=== PATIENT | male | born 1975 | race Caucasian/White ===

== ENCOUNTER 2017-02-08 09:28 | Emergency (ER) | payer OTHER ==
[2017-02-08 09:39] VITALS: BP 121/75
[2017-02-08] MEDS ORDERED: Ketorolac INJ* 60 MG/2 ML VIAL IM ONE (10:11)
--- NOTE | 2017-02-08 10:47 | RAD ---
HISTORY: Back pain COMPARISONS: None VIEWS: 5 , Frontal, lateral, coned-down lateral sacral, and bilateral oblique views of the lumbar spine. FINDINGS: ALIGNMENT: The alignment is normal. VERTEBRAL BODIES: The vertebral body heights are normal. The interpedicular distances are normal. There is mild anterolateral marginal osteophyte formation. Incidentally noted is a dysraphic defect of L5. There are probable bilateral pars defects. JOINTS: There is mild facet osteoarthritis. INTERVERTEBRAL DISCS: There is mild diffuse loss of intervertebral disc height. SOFT TISSUE: Unremarkable. OTHER: The pelvis is unremarkable. The lung bases are clear. IMPRESSION: MILD DEGENERATIVE DISC DISEASE AND OSTEOARTHRITIS. 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
--- NOTE | 2017-02-08 12:04 | UC ---
Back Pain HPI - HPI Summary HPI Summary: TWO WEEKS AGO, PICKED UP GARDEN POTS IN THE RAIN, HAD TWISTING INJURY, INJURED LOW BACK. SINCE THAT TIME HAS HAD CONTINUED PAIN. TINGLING RADIATING DOWN LEGS. NO LOSS OF CONTROL OF BLADDER OR BOWELS. NO BRUISING. NO SWELLING. NO FEVER. - History of Current Complaint Chief Complaint: UCBackPain Stated Complaint: LOWER BACK PAIN Time Seen by Provider: 02/08/17 09:55 Hx Obtained From: Patient, Family/Manufacturing Engineering Director Onset/Duration: Sudden Onset, Lasting Weeks, Still Present Timing: Intermittent, Lasting Hours Severity Initially: Moderate Severity Currently: Moderate Pain Intensity: 6 Pain Scale Used: 0-10 Numeric Back Pain: Radiates To - LEGS Character: Sharp, Dull, Spasmodic Aggravating: Movement, Lifting, Bending, Walking, Cough Alleviating: Rest, Position, OTC Meds Associated Signs And Symptoms: Positive: Tingling, Pain with Weight Bearing. Negative: Fever, Weakness, Numbness, Abdominal Pain, Flank Pain, Bladder Incontinence, Bowel Incontinence, Weight Loss - Risk Factors AAA Risk Factors: Negative TAD Risk Factors: Negative Cauda Equina Risk Factors: Negative Epidural Abscess Risk Factors: Negative - Allergies/Home Medications Allergies/Adverse Reactions: Allergies Allergy/AdvReac Type Severity Reaction Status Date / Time No Known Allergies Allergy Verified 02/08/17 09:38 Home Medications: Home Medications Acetaminophen TAB* [Tylenol TAB*] 650 mg PO Q4H PRN 02/08/17 [History Confirmed 02/08/17] PMH/Surg Hx/FS Hx/Imm Hx Previously Healthy: Yes - Surgical History Surgical History: None - Family History Known Family History: Negative: Renal Disease - Social History Occupation: Employed Full-time Lives: With Family Alcohol Use: Daily Alcohol Amount: 3-4 beers per day Substance Use Type: Marijuana Substance Use Comment - Amount & Last Used: couple times a week Smoking Status (MU): Heavy Every Day Tobacco Smoker Type: Cigarettes Amount Used/How Often: 1/2ppd Cessation Counseling: Patient Advised to Stop Review of Systems Constitutional: Negative Skin: Negative Eyes: Negative ENT: Negative Respiratory: Negative Cardiovascular: Negative Gastrointestinal: Negative Genitourinary: Negative Motor: Negative Neurovascular: Negative Musculoskeletal: Arthralgia, Myalgia Neurological: Negative Psychological: Negative All Other Systems Reviewed And Are Negative: Yes Physical Exam Triage Information Reviewed: Yes Appearance: Well-Appearing, Well-Nourished, Pain Distress Vital Signs: Initial Vital Signs Temp 97.7 F 02/08/17 09:33 Pulse 69 02/08/17 09:33 Resp 18 02/08/17 09:33 BP 121/75 02/08/17 09:33 Pulse Ox 100 02/08/17 09:33 Vital Signs Reviewed: Yes Eye Exam: Normal ENT Exam: Normal Dental Exam: Normal Neck exam: Normal Neck: Positive: Supple, Nontender Respiratory Exam: Normal Respiratory: Positive: Chest non-tender, Lungs clear, Normal breath sounds, No respiratory distress, No accessory muscle use Cardiovascular Exam: Normal Cardiovascular: Positive: RRR, No Murmur, Pulses Normal, Brisk Capillary Refill Abdominal Exam: Normal Musculoskeletal Exam: Normal Musculoskeletal: Positive: Strength Intact, ROM Intact Neurological Exam: Normal Psychological Exam: Normal Skin Exam: Normal Back Pain Course/Dx - Differential Dx/Diagnosis Differential Diagnosis/HQI/PQRI: Arthritis, Cauda Equina Syndrome, Fracture, Herniated Disc, Strain, Sprain Provider Diagnoses: BILATERAL PARS DEFECT AT L5; LOW BACK PAIN Discharge - Discharge Plan Condition: Stable Disposition: HOME Prescriptions: Metaxalone TAB* [Skelaxin TAB*] 800 mg PO QID PRN #40 tab PRN Reason: Spasms Naproxen [Naproxen 500 mg] 500 mg PO Q12HR #12 tab Patient Education Materials: Acute Low Back Pain (ED), Lumbar Radiculopathy (ED ) Referrals: USHA Cuellar [Primary Care Provider] - Additional Instructions: PHYSICAL THERAPY REFERRAL: You have been prescribed physical therapy. Treatments may include stretching, exercise, application of heat or cold, and other modalities. After an injury, PT can reduce swelling and pain. In recovery, PT is used to restore mobility and strength. Your specific treatment goals are: Reduction of Swelling (EGS, US, ice as needed) ____x_ Pain Reduction (EGS, US, ice as needed) ___x__ TENS Pack Fitting and Instruction Wound Hydrotherapy __x___ Preservation of Mobility __x___ Confucianism of Mobility ___x__ Strength Confucianism ____x_ Work or Sports Hardening This instruction sheet also serves as your PHYSICAL THERAPY REFERRAL! Please take it with you to the therapist, so he/she will be aware of your diagnosis and treatment plan. You may see the physical therapist of your choice for these treatments, but may wish to check with your insurance to be sure the provider you select is covered. It's important to see the doctor to whom you have been referred for follow up.
== END 2017-02-08 11:21 | disposition home or self-care (01) ==
LOC: UCCORT 09:28
DX: M54.5 Low back pain (principal); M51.36 Other intervertebral disc degeneration, lumbar region; M47.816 Spondylosis without myelopathy or radiculopathy, lumbar region; F17.210 Nicotine dependence, cigarettes, uncomplicated
CPT/HCPCS: 72110; 96372; 99202; G0463; J1885